=== PATIENT | female | born 1995 | race Two or more races ===

== ENCOUNTER 2023-04-18 08:44 | Emergency (ER) | payer MEDICAID, OTHER ==
[~2023-04-18] VITALS: Ht 162.6 cm; Wt 75.8 kg
[2023-04-18 09:40] VITALS: BP 110/80; PULSE 79; RESP 18; TEMP 97.6; O2SAT 96
[2023-04-18 09:40] LABS: Urine Bacteria FEW /hpf (None Seen); Urine Blood 3+ /uL (Negative); Urine Clarity HAZY (Clear); Urine Color PINK (Yellow); Urine Mucus FEW (None Seen); Urine Protein, UAD 1+ (Negative); Urine Specific Gravity 1.019 (1.001-1.035); Urine Urobilinogen Normal (Negative); Urine WBC 111 /hpf (0 - 5); Urine WBC Clumps PRESENT /hpf (None Seen); Urine pH 5.5 (5.0-8.0)
[2023-04-18] MEDS ORDERED: KETOROLAC TROMETH 60MG/2ML VIAL IM ONE (10:00)
[2023-04-18] MEDS ORDERED: cefTRIAXone SOD 1,000 MG VL IM ONE (10:00)
[2023-04-18] MEDS ORDERED: IBUP-1456 PO (10:02)
[2023-04-18] MEDS ORDERED: BACDST PO (10:02)
== END 2023-04-18 10:19 | disposition home or self-care (01) ==
LOC: ER 08:44
DX: N39.0 Urinary tract infection, site not specified (principal); Z88.6 Allergy status to analgesic agent
CPT/HCPCS: 81001; 81025; 96372; 99284; J0696; J1885